=== PATIENT | female | born 2000 | race Caucasian/White ===

== ENCOUNTER 2023-03-08 12:17 | Emergency (ER) | payer BC ==
[~2023-03-08] VITALS: Ht 154.9 cm; Wt 59.0 kg
--- NOTE | 2023-03-08 12:45 | NUR ---
BIBS C/O BODY PAIN, FEVER, DIARRHEA AND BILATERAL LOWER LEG RASH X 1 WEEK.
--- NOTE | 2023-03-08 12:50 | NUR ---
AT BEDSIDE FOR EVAL
[2023-03-08] MEDS ORDERED: diphenhydrAMINE HCL 25 MG CAPSULE PO ONE (13:00)
[2023-03-08] MEDS ORDERED: FAMOTIDINE (20 MG) 20 MG TABLET PO ONE (13:00)
[2023-03-08] MEDS ORDERED: FAMOTIDINE (20 MG) 20 MG TABLET ONE (13:04)
[2023-03-08] MEDS ORDERED: diphenhydrAMINE HCL 25 MG CAPSULE ONE (13:04)
--- NOTE | 2023-03-08 13:13 | NUR ---
Patient discharged to home in stable condition. Written and verbal after care instructions given. Patient verbalizes understanding of instruction.
[2023-03-08 13:18] VITALS: BP 110/60
== END 2023-03-08 13:13 | disposition home or self-care (01) ==
LOC: ER 13:01
DX: R21 Rash and other nonspecific skin eruption (principal); Z60.2 Problems related to living alone
CPT/HCPCS: 99283; Q0163